=== PATIENT | female | born 1960 | race Caucasian/White ===

== ENCOUNTER 2021-08-04 07:50 | Day surgery (SDC) | payer MEDICAID, SELFPAY ==
[~2021-08-04] VITALS: Ht 149.9 cm; Wt 72.1 kg
[2021-08-04] MEDS ORDERED: fentaNYL CITRATE/PF 100 MCG/2 ML AMP ONE (09:35)
[2021-08-04] MEDS ORDERED: MIDAZOLAM HCL 5 MG/5 ML VIAL ONE (09:35)
[2021-08-04 12:57] VITALS: BP_SYST 137
== END 2021-08-04 11:40 | disposition home or self-care (01) ==
LOC: SDS 07:50 → SMU 07:51 → SDS 11:40
PROVIDERS: ATTEND Internal Medicine
DX: Z12.11 Encounter for screening for malignant neoplasm of colon (principal); K62.1 Rectal polyp; K57.30 Diverticulosis of large intestine without perforation or abscess without bleeding; K64.8 Other hemorrhoids; J45.909 Unspecified asthma, uncomplicated; E11.9 Type 2 diabetes mellitus without complications; Z87.891 Personal history of nicotine dependence; Z79.84 Long term (current) use of oral hypoglycemic drugs; Z79.899 Other long term (current) drug therapy; Z20.822 Contact with and (suspected) exposure to COVID-19
CPT/HCPCS: 36415; 45380; 82962; 87426; 88305; 96365; 99152; G0378; J2250; J3010; U0003

== ENCOUNTER 2023-08-29 19:09 | Emergency (ER) | payer MEDICARE, MEDICAID ==
[~2023-08-29] VITALS: Ht 180.3 cm; Wt 68.0 kg
[2023-08-29 19:53] VITALS: BP_SYST 106; PULSE 87; RESP 19; TEMP 97; O2SAT 96
[2023-08-29] MEDS ORDERED: NABU-140 PO (20:47)
[2023-08-29] MEDS: HYDROcodone/ACETAMIN 5-325 MG TAB (NORCO/ VICODIN) PO ONE (20:57)
== END 2023-08-29 21:13 | disposition home or self-care (01) ==
LOC: SED 19:09
DX: S43.491A Other sprain of right shoulder joint, initial encounter (principal); S80.02XA Contusion of left knee, initial encounter; Z79.899 Other long term (current) drug therapy; W01.0XXA Fall on same level from slipping, tripping and stumbling without subsequent striking against object, initial encounter; Y93.89 Activity, other specified; Y92.89 Other specified places as the place of occurrence of the external cause; Y99.8 Other external cause status
CPT/HCPCS: 73030; 73560; 99284

== ENCOUNTER 2023-09-05 13:34 | Emergency (ER) | payer MEDICARE, MEDICAID ==
[~2023-09-05] VITALS: Ht 149.9 cm; Wt 68.0 kg
[~2023-09-05 13:34] MED LIST: NABU-140 PO
[2023-09-05 13:54] VITALS: BP_SYST 120; PULSE 88; RESP 15; TEMP 97.5; O2SAT 97
[2023-09-05] MEDS: predniSONE 20 MG TABLET PO ONE (14:45)
[2023-09-05] MEDS: ALBUTEROL SULFATE 0.083% 2.5 MG/3 ML VIAL.NEB INH ONE (14:57)
[2023-09-05 15:20] LABS: BILIRUBIN,URINE NEGATIVE (NEGATIVE); CLARITY/URINE CLEAR (CLEAR); COLOR,URINE YELLOW (YELLOW); GLUCOSE,URINE NEGATIVE (NEGATIVE); KETONES,URINE NEGATIVE (NEGATIVE); LEUKOCYTE ESTERASE ,URINE NEGATIVE (NEGATIVE); NITRITE, URINE NEGATIVE (NEGATIVE); PROTEIN URINE NEGATIVE (NEGATIVE)
[2023-09-05 15:23] LABS: COVID19 ANTIGEN SOFIA FIA NEGATIVE (NEGATIVE)
[2023-09-05 15:32] VITALS: O2SAT 99
[2023-09-05 15:33] LABS: INFLUENZA TYPE A Negative (NEGATIVE); INFLUENZA TYPE B NEGATIVE (NEGATIVE)
[2023-09-05 15:55] LABS: BLOOD, URINE TRACE (NEGATIVE)
[2023-09-05 16:12] LABS: BACTERIA,URINE FEW /HPF (None Seen); MUCUS,URINE None Seen /LPF (None Seen); WBC,URINE 0-3 /HPF (0-3)
[2023-09-05] MEDS ORDERED: predniSONE 20 MG TABLET ONE (17:17)
[2023-09-05] MEDS ORDERED: CLOT15CR5 TP (17:23)
[2023-09-05] MEDS ORDERED: PRED20TA PO (17:23)
[2023-09-05] MEDS ORDERED: BEN50 PO (18:06)
[2023-09-05] MEDS: DIPHENHYDRAMINE HCL 50 MG CAPSULE PO ONE (18:11)
== END 2023-09-05 18:20 | disposition home or self-care (01) ==
LOC: SED 13:34
DX: J45.901 Unspecified asthma with (acute) exacerbation (principal); B37.2 Candidiasis of skin and nail; R21 Rash and other nonspecific skin eruption; I10 Essential (primary) hypertension; E11.9 Type 2 diabetes mellitus without complications; E78.5 Hyperlipidemia, unspecified; Z20.822 Contact with and (suspected) exposure to COVID-19
CPT/HCPCS: 99283; 87426; 81000; 81001; 36415; 94640; 87804 ×2; 81015; Q0163; J7512; 94760

== ENCOUNTER 2023-09-17 20:20 | Emergency (ER) | payer MEDICARE, MEDICAID ==
[~2023-09-17] VITALS: Ht 149.9 cm; Wt 68.0 kg
[~2023-09-17 20:20] MED LIST changes: +BEN50 PO; +CLOT15CR5 TP; +PRED20TA PO
[2023-09-17 20:29] VITALS: BP_SYST 139; PULSE 89; RESP 16; TEMP 97.1; O2SAT 94
[2023-09-17 21:58] LABS: BILIRUBIN,URINE NEGATIVE (NEGATIVE); CLARITY/URINE CLEAR (CLEAR); COLOR,URINE YELLOW (YELLOW); GLUCOSE,URINE NEGATIVE (NEGATIVE); KETONES,URINE NEGATIVE (NEGATIVE); LEUKOCYTE ESTERASE ,URINE TRACE (NEGATIVE); NITRITE, URINE NEGATIVE (NEGATIVE); PROTEIN URINE NEGATIVE (NEGATIVE)
[2023-09-17 22:15] VITALS: TEMP 97.6; O2SAT 97
[2023-09-17] MEDS ORDERED: KETOROLAC TROMETHAMINE 60 MG/2 ML VIAL IM ONE (22:15)
[2023-09-17 22:16] LABS: BASOPHILS # (AUTO) 0.1 K/uL (0.0-0.2); EOSINOPHILS # (AUTO) 0.5 K/uL (0.0-0.4); EOSINOPHILS % (AUTO) 4.1 % (0.0-4.0); HEMATOCRIT 36.5 % (36-48); HEMOGLOBIN 12.1 g/dL (12.0-16.0); LYMPHOCYTES # (AUTO) 2.9 K/uL (1.0-5.5); LYMPHOCYTES % (AUTO) 24.2 % (20.5-51.5); MEAN CORPUSCULAR HEMOGLOBIN 27 pg (27-31); MEAN CORPUSCULAR HGB CONC 33 % (32-36); MEAN CORPUSCULAR VOLUME 80 fL (79.0-98.0); MONOCYTES # (AUTO) 0.7 K/uL (0.0-1.0); NEUTROPHILS # (AUTO) 7.8 K/uL (1.8-7.7); NEUTROPHILS % (AUTO) 64.7 % (40.0-70.0); PLATELET COUNT (AUTO) 297 K/uL (130-430); RED BLOOD CELL COUNT(AUTO) 4.54 MIL/uL (4.2-6.2)
[2023-09-17 22:17] LABS: BACTERIA,URINE RARE /HPF (None Seen); BLOOD, URINE TRACE (NEGATIVE); RBC,URINE 0-3 /HPF (0-3); WBC,URINE 0-3 /HPF (0-3)
[2023-09-17 22:30] LABS: PROTHROMBIN TIME 10.2 SECS (9.5-12.5)
[2023-09-17 22:43] LABS: ALBUMIN 3.4 g/dL (3.4-4.8); BILIRUBIN,DIRECT 0.1 mg/dL (0.0-0.3); CALCIUM 9.2 mg/dL (8.4-11.0); CREATININE 0.83 mg/dL (0.55-1.30); POTASSIUM 4.5 mmol/L (3.5-5.1); TOTAL BILIRUBIN 0.4 mg/dL (0.0-1.0); TOTAL PROTEIN, SERUM 7.2 g/dL (6.4-8.3)
[2023-09-17] MEDS: MORPHINE 4 MG INJ. 4 MG/ML VIAL IM ONE (23:08)
[2023-09-17] MEDS ORDERED: HYDR-3917 PO (23:09)
[2023-09-17] MEDS ORDERED: IBUP-1969 PO (23:09)
[2023-09-17 23:55] VITALS: BP_SYST 133; PULSE 56
== END 2023-09-17 22:20 | disposition home or self-care (01) ==
LOC: SED 20:20
DX: R10.12 Left upper quadrant pain (principal); M25.552 Pain in left hip; J45.909 Unspecified asthma, uncomplicated; E11.9 Type 2 diabetes mellitus without complications; I10 Essential (primary) hypertension; Z79.899 Other long term (current) drug therapy
CPT/HCPCS: 99285; 74176; 80076; 80048; 81001; 82150; 83690; 85025; 85610; 85730; 36415; 96372; 82948; 83605; 82397; 81000; 81015; J2270

== ENCOUNTER 2023-11-10 17:51 | Emergency (ER) | payer MEDICARE, MEDICAID ==
[~2023-11-10] VITALS: Ht 147.3 cm; Wt 68.0 kg
[~2023-11-10 17:51] MED LIST changes: +DIPH25CA83 PO; +HYDR-3917 PO; +IBUP-1969 PO
[2023-11-10 17:53] VITALS: BP_SYST 124; PULSE 81; RESP 19; TEMP 97.7; O2SAT 99
[2023-11-10 19:00] LABS: BASOPHILS # (AUTO) 0.2 K/uL (0.0-0.2); BASOPHILS % (AUTO) 1.4 % (0.0-2.0); EOSINOPHILS # (AUTO) 0.4 K/uL (0.0-0.4); EOSINOPHILS % (AUTO) 3.3 % (0.0-4.0); HEMATOCRIT 37.7 % (36-48); HEMOGLOBIN 12.6 g/dL (12.0-16.0); LYMPHOCYTES # (AUTO) 2.9 K/uL (1.0-5.5); LYMPHOCYTES % (AUTO) 21.9 % (20.5-51.5); MEAN CORPUSCULAR HEMOGLOBIN 27 pg (27-31); MEAN CORPUSCULAR HGB CONC 33 % (32-36); MEAN CORPUSCULAR VOLUME 81 fL (79.0-98.0); MONOCYTES # (AUTO) 0.8 K/uL (0.0-1.0); MONOCYTES % (AUTO) 5.9 % (1.7-9.3); NEUTROPHILS # (AUTO) 8.8 K/uL (1.8-7.7); NEUTROPHILS % (AUTO) 67.5 % (40.0-70.0); PLATELET COUNT (AUTO) 318 K/uL (130-430); RED BLOOD CELL COUNT(AUTO) 4.67 MIL/uL (4.2-6.2); RED CELL DISTRIBUTION WIDTH 16.4 % (9.0-15.0)
[2023-11-10 19:14] LABS: ALBUMIN 3.5 g/dL (3.4-4.8); BILIRUBIN,DIRECT 0.1 mg/dL (0.0-0.3); CALCIUM 9.2 mg/dL (8.4-11.0); CREATININE 1.02 mg/dL (0.55-1.30); POTASSIUM 4.5 mmol/L (3.5-5.1); TOTAL BILIRUBIN 0.4 mg/dL (0.0-1.0); TOTAL PROTEIN, SERUM 7.5 g/dL (6.4-8.3)
[2023-11-10 19:30] LABS: PROTHROMBIN TIME 10.8 SECS (9.5-12.5)
[2023-11-10 20:04] VITALS: BP_SYST 124; PULSE 81; RESP 19; TEMP 97.7; O2SAT 99
== END 2023-11-10 20:03 | disposition home or self-care (01) ==
LOC: SED 17:51
DX: E86.0 Dehydration (principal); R53.1 Weakness; R53.83 Other fatigue; Z79.899 Other long term (current) drug therapy; Z79.2 Long term (current) use of antibiotics
CPT/HCPCS: 36415; 80048; 80076; 83970; 85025; 85610; 99283

== ENCOUNTER 2024-03-07 19:30 | Emergency (ER) | payer MEDICARE, MEDICAID ==
[~2024-03-07] VITALS: Ht 149.9 cm; Wt 69.9 kg
[2024-03-07 19:39] VITALS: BP_SYST 110; PULSE 118; RESP 20; TEMP 98.6; O2SAT 95
[2024-03-07] MEDS: KETOROLAC TROMETHAMINE 30 MG VIAL IM ONE (20:26)
[2024-03-07] MEDS: MORPHINE SULFATE 10 MG/ML VIAL IVP ONE (21:47)
[2024-03-07 21:55] VITALS: BP_SYST 119; PULSE 101; RESP 16; O2SAT 97
== END 2024-03-07 21:55 | disposition home or self-care (01) ==
LOC: SED 19:30
DX: M25.561 Pain in right knee (principal); M25.562 Pain in left knee; M54.50 Low back pain, unspecified; E11.9 Type 2 diabetes mellitus without complications; I10 Essential (primary) hypertension; J45.909 Unspecified asthma, uncomplicated; Z96.652 Presence of left artificial knee joint; Z79.52 Long term (current) use of systemic steroids; Z79.899 Other long term (current) drug therapy
CPT/HCPCS: 99284; 73560; 96372; J1885; J2270